=== PATIENT | female | born 1965 | race Hispanic/Latino ===

== ENCOUNTER 2019-02-20 08:43 | Outpatient (CLI) | payer OTHER ==
--- NOTE | 2019-02-20 09:40 | MMO ---
Bilateral MAMMO Bilat Screen [facility]. CLINICAL HISTORY: Patient is 53 years old and is seen for screening. The patient has no family history of breast cancer. The patient has no personal history of cancer. The patient has a history of bilateral Implants in 1998. VIEWS: The views performed were: bilateral craniocaudal; bilateral craniocaudal with tomosynthesis; bilateral mediolateral oblique; bilateral mediolateral oblique with tomosynthesis; and bilateral Implant displaced with tomosynthesis. This study has been interpreted with the assistance of computer-aided detection. MAMMOGRAM FINDINGS: There are scattered fibroglandular densities. Normal implants are present. There are no suspicious masses, suspicious calcifications, or new areas of architectural distortion. IMPRESSION: THERE IS NO MAMMOGRAPHIC EVIDENCE OF MALIGNANCY. A ROUTINE FOLLOW-UP MAMMOGRAM IN 1 YEAR IS RECOMMENDED. THE RESULTS OF THIS EXAM WERE SENT TO THE PATIENT. ACR BI-RADS Category 2 - Benign finding MAMMOGRAPHY NOTE: 1. A negative mammogram report should not delay a biopsy if a dominant of clinically suspicious mass is present. 2. Approximately 10% to 15% of breast cancers are not detected by mammography. 3. Adenosis and dense breasts may obscure an underlying neoplasm. Reported by: VÍCTOR LUNA MD Electonically Signed: [id number]
--- NOTE | 2019-02-20 10:54 | BD ---
BONE DENSITOMETRY USING DEXA: Date: 02/20/19 HISTORY: Postmenopausal screening for osteoporosis. FINDINGS: Lumbar Spine: BMD (g/cm2) L1 0.705 T-Score: -2.6 Z-Score: -1.9 L2 0.704 T-Score: -2.9 Z-Score: -2.1 L3 0.699 T-Score: -3.5 Z-Score: -2.7 L4 0.670 T-Score: -3.6 Z-Score: -2.7 L1-L4 0.694 T-Score: -3.2 Z-Score: -2.4 Femoral Neck: 0.730 T-Score: -1.1 Z-Score: 0.2 Total Femur: 0.928 T-Score: -0.1 Z-Score: 0.4 IMPRESSION: Osteoporosis. POS: [facility]
== END 2019-02-20 08:44 | disposition home or self-care (01) ==
LOC: BICMAMMO 08:43
PROVIDERS: ATTEND Internal Medicine
DX: Z12.31 Encounter for screening mammogram for malignant neoplasm of breast (principal); Z13.820 Encounter for screening for osteoporosis; Z78.0 Asymptomatic menopausal state; S82.112D Displaced fracture of left tibial spine, subsequent encounter for closed fracture with routine healing; M81.0 Age-related osteoporosis without current pathological fracture
CPT/HCPCS: 77063; 77067; 77080

== ENCOUNTER 2019-04-03 11:20 | Outpatient (CLI) | payer OTHER ==
--- NOTE | 2019-04-03 12:21 | RAD ---
LUMBAR SPINE 2 VIEWS: Date: 04/03/2019 HISTORY: Low back pain. FINDINGS: Lumbar vertebra maintain normal height and alignment in the lateral view. Disc spaces are preserved. Minimal curvature in the AP projection which may be positional. IMPRESSION: Minimal curvature in the AP projection. Lumbar spine otherwise unremarkable. POS: [facility]
== END 2019-04-03 11:21 | disposition home or self-care (01) ==
LOC: BICRAD 11:20
PROVIDERS: ATTEND Internal Medicine
DX: M54.5 Low back pain (principal); M43.9 Deforming dorsopathy, unspecified
CPT/HCPCS: 72100

== ENCOUNTER 2020-03-13 08:34 | Outpatient (CLI) | payer OTHER ==
--- NOTE | 2020-03-13 09:06 | BD ---
DEXA BONE MINERAL DENSITOMETRY EXAM, DENSITY STUDY: HISTORY: Postmenopausal. FINDINGS: Lumbar Spine: BMD (g/cm2) L1 0.710 T-Score: -2.5 L2 0.734 T-Score: -2.7 L3 0.664 T-Score: -3.8 L4 0.681 T-Score: -3.5 L1-L4 0.695 T-Score: -3.2 Femoral Neck: 0.724 T-Score: -1.1 Total Femur: 0.921 T-Score: -0.2 Impression: Osteopenia of the left femoral neck. Osteoporosis of the lumbar spine. POS: [facility]
== END 2020-03-13 08:35 | disposition home or self-care (01) ==
LOC: BICMAMMO 08:34
PROVIDERS: ATTEND Internal Medicine
DX: M81.6 Localized osteoporosis [Lequesne] (principal); M85.852 Other specified disorders of bone density and structure, left thigh
CPT/HCPCS: 77080

== ENCOUNTER 2020-10-23 12:37 | Outpatient (CLI) | payer OTHER | END 2020-10-23 12:38 | disposition home or self-care (01) | LOC: BICRAD 12:37 | PROVIDERS: ATTEND Internal Medicine Critical Care Medicine | DX: R06.00 Dyspnea, unspecified (principal) | CPT/HCPCS: 71046 ==